=== PATIENT | female | born 1950 | race Caucasian/White ===

== ENCOUNTER → 2023-03-04 11:42 | Outpatient (CLI) | payer MEDICARE, BC, OTHER, SELFPAY ==
--- NOTE | 2023-03-04 | DI.CT.S_ITS ---
PROCEDURE: CT UE LT WO CON INDICATIONS: Primary osteoarthritis, left shoulder TECHNIQUE: Noncontrast 1-1.5 mm thick sections acquired from the acromioclavicular joint to the inferior scapula, with coronal and sagittal reformatting. COMPARISON: None. FINDINGS: Image quality: Excellent. Bones: There is likely postsurgical widening of acromioclavicular joint. Moderate osteoarthritic changes are noted in glenohumeral joint with joint space narrowing, subchondral sclerosis and small marginal osteophyte formation. No suspicious bony lesion. No acute fracture or dislocation. Visualized left ribs are intact. Mild degenerative disc disease in visualized thoracic spine is also seen. No acute vertebral body compression fracture. Postfusion changes are noted in visualized lower cervical spine. Soft tissues: There is no gross full-thickness rotator cuff tendon rupture. No abnormal soft tissue calcifications. No significant rotator cuff muscle atrophy. No significant joint effusion or subacromial subdeltoid bursal fluid is seen. No no axillary lymphadenopathy. The visualized left lung field is clear. IMPRESSION: 1. Possible postsurgical widening of acromioclavicular joint suggest clinical correlation. Moderate acromioclavicular joint osteoarthritis. No acute fracture or dislocation. No suspicious bony lesions. Prior anterior fusion of lower cervical spine. 2. No full-thickness rotator cuff tendon rupture. No significant rotator cuff muscle atrophy. No abnormal soft tissue calcifications. No significant joint effusion or subacromial subdeltoid bursal fluid. Dictated by: Santiago Edmond M.D. on 03/04/2023 at 20:12 Approved by: Santiago Edmond M.D. on 03/04/2023 at 21:13
== END ==
PROVIDERS: Referring Provider Orthopaedic Surgery; Visit Provider Orthopaedic Surgery
DX: M19.012 Primary osteoarthritis, left shoulder (principal)
CPT/HCPCS: 73200

== ENCOUNTER → 2023-04-15 08:45 | Outpatient (CLI) | payer MEDICARE, BC, OTHER, SELFPAY ==
[2023-04-15 10:08] LABS: Add Manual Diff / Slide Review NO; Basophils Absolute Auto 0 /uL (0-100); Basophils Percent Auto 0.9 % (0-2); Eosinophils Absolute Auto 100 /uL (0-450); Eosinophils Percent Auto 1.3 % (2-4); Hematocrit 37.9 % (36-46); Hemoglobin 12.8 g/dL (12.0-16.0); Lymphocytes Absolute Auto 1700 /uL (1100-4500); Mean Corpuscular HGB Conc 33.7 % (30-36); Mean Corpuscular Hemoglobin 30.2 PG (26-34); Mean Corpuscular Volume 89.5 fL (80-100); Monocytes Absolute Auto 400 /uL (0-900); Monocytes Percent Auto 7.6 % (3-14); Neutrophils Absolute Auto 3200 /uL (1500-7000); Neutrophils Percent Auto 59.2 % (50-75); Platelet Count 162 X10^3/uL (150-400); Red Blood Cell Count 4.24 X10^6/uL (4.0-5.2); Red Cell Distribution Width 13.1 % (11.6-14.8); White Blood Cell Count 5.4 X10^3/uL (4.5-11.0)
[2023-04-15 10:20] LABS: BUN Creatinine Ratio 19.2 (6-22); Blood Urea Nitrogen 14 mg/dL (7-17); Calcium 9.6 mg/dL (8.4-10.2); Carbon Dioxide 26 mmol/L (22-32); Chloride 103 mmol/L (98-107); Estimated Glomerular Filt Rate > 60 mL/min (>60); Glucose 120 mg/dL (80-110); HEMOLYSIS < 15 (0-50); Sodium 135 mmol/L (137-145)
[2023-04-15 10:35] LABS: Appearance Urine UA CLEAR; Bilirubin Urine UA NEGATIVE (NEGATIVE); Color Urine UA YELLOW; Glucose Urine UA NEGATIVE (Negative); Ketones Urine UA NEGATIVE (NEGATIVE); Leukocyte Esterase Urine UA NEGATIVE (NEGATIVE); Nitrite Urine UA NEGATIVE (Negative); Occult Blood Urine UA NEGATIVE (Negative); Protein Urine UA NEGATIVE (Negative); Specific Gravity Urine UA 1.015 (1.000-1.035); Urobilinogen Urine UA 0.2 E.U./dL (0.2)
[2023-04-15 10:41] LABS: Bacteria Urine None Seen; Culture Indicated Urine Cult Not Indicated; RBC Urine None Seen (0-5/HPF); Squamous Epithelial Cell Urine None Seen (0-5/HPF); WBC Urine None Seen (0-5/HPF)
== END ==
PROVIDERS: Referring Provider Orthopaedic Surgery; Visit Provider Orthopaedic Surgery
DX: Z01.818 Encounter for other preprocedural examination (principal); Z01.812 Encounter for preprocedural laboratory examination; N39.0 Urinary tract infection, site not specified
CPT/HCPCS: 36415; 80048; 81001; 85025; 93005

== ENCOUNTER 2023-04-29 06:19 | Inpatient (IN) | payer MEDICARE, BC, OTHER, SELFPAY ==
[2023-04-23 08:46] VITALS: BMI 25.7
[2023-04-29] VITALS (7 sets, daily range): BP systolic 104–153; BP diastolic 42–64; PULSE 52–83; RESP 16–32; TEMP 35.9–37; O2SAT 95–99; BMI 25.7; BMI 27.2
--- NOTE | 2023-04-29 06:00 | DI.RAD.S_ITS ---
PROCEDURE: XR SHOULDER LT 1V INDICATIONS: total left shoulder TECHNIQUE: Single view of the shoulder were acquired. COMPARISON: None. FINDINGS: Bones: Left shoulder reverse arthroplasty components are in adequate position. The joint is grossly congruent on a single view. No unexpected fractures. Soft tissues: Expected gas in the soft tissues. No radiodense foreign bodies. IMPRESSION: Expected appearance post left shoulder arthroplasty. Dictated by: Radha Teixeira M.D. on 04/29/2023 at 12:05 Approved by: Radha Teixeira M.D. on 04/29/2023 at 12:06
--- NOTE | 2023-04-29 07:17 | SUR.OPER ---
Beach chair with Devon shoulder positioner. Lower body on padded OR bed. Head in foam padded head cradle, secured with straps. Non-operative arm secured <90 degrees abduction. Pillow under knees. Safety belt at thigh. Cloth tape over blanket over lower legs.
[2023-04-29] MEDS: LACTATED RINGERS 1,000 ML 42 ML IV (07:18)
[2023-04-29] MEDS: ACETAMINOPHEN 325 MG TABLET 975 MG PO (07:21)
--- NOTE | 2023-04-29 07:38 | PM.PREOP ---
Pre-operative Note Interval Note History & Physical reviewed/Exam performed by Physician: Yes Changes to H&P: No
--- NOTE | 2023-04-29 07:52 | SUR.PREOP ---
Block start time [0740] . Monitoring initiated and maintained throughout procedure. Oxygen and medications given per anesthesiologist instructions. Patient remained stable throughout procedure, no adverse reactions noted. Block end time [0750].
[2023-04-29] MEDS: CEFAZOLIN 2 GM/100 ML PREMIX 100 ML IV (07:55)
[2023-04-29] MEDS: BUPIVACAINE 0.25% (PF) 10 ML, EPINEPHrine 0.3 MG INJ (08:34)
[2023-04-29] MEDS: TRANEXAMIC ACID 1,000 MG VIAL 1000 MG INJ ×2 (08:34→09:22)
[2023-04-29] MEDS: OXYCODONE IR 5 MG TABLET PO ×4 (09:51→21:18)
--- NOTE | 2023-04-29 09:54 | P.OP_ITS ---
Operative Date/Time/Diagnoses Date of procedure: 04/29/23 Time of procedure: 09:59 Pre-op diagnosis: Left shoulder cuff tear arthropathy Post-op diagnosis: same Procedure & Clinicians Procedure: Left reverse total shoulder arthroplasty Same procedure as scheduled: Yes Indications: Indications: This is a 72-year-old female who has rotator cuff arthropathy. Symptoms have been present for years, insidious onset. Patient has failed conservative therapy including injections, physical therapy, anti-inflammatories and activity modification. After extensive discussion in clinic, they wished to go forward with surgery. Risks and benefits were described including the risk of infection, bleeding, damage to internal structures including nerves. We also discussed the risk of failure of surgery and the need for revision surgery as well as the risk of anesthesia. The patient expressed understanding with these risks and wished to go forward with surgery. Surgeon: Maicol Tracy Software Engineering Analyst: Scott Gonzalez Click Yes if Unassisted: No Anesthesia Type: General Operative Notes Findings: Findings: Osteoarthritis of the glenoid and humeral head as well as a defient rotator cuff as noted on preoperative imaging and under direct visualization Closure Type: primary Specimen(s): none sent Prosthetic devices, grafts, tissues, transplants, or devices: Tornier implants Base plate: standard 25 mm, +3 mm offset Glenosphere: Standard 36 mm Stem: Perform 3 Poly: +0 concentric Estimated Blood Loss (mL): 50 Procedure in detail: Patient was seen in the preoperative holding unit. The correct left shoulder was identified and marked with my initials. Again we discussed the risks and benefits of surgery and they wished to go forward with surgery. The patient was brought back to the operating room and placed supine on the operating table. Smooth endotracheal intubation was performed by anesthesia. All prominences were padded and they were placed into the beach chair position. Intravenous an tibiotics were given. The left shoulder was then prepped with the standard sterile preparation and draping. A time-out was then performed in my initials were again identified on the correct shoulder. 1 g of IV tranexamic acid was given. A standard deltopectoral incision was made. Skin flaps were made. The cephalic vein was identified and retracted laterally. This was protected throughout the remainder of the case. Sharp dissection was made along the deltoid, subacromial and subcoracoid space to release adhesions. The conjoined tendon was identified and the axillary nerve was palpated and continuous using the tug test. It was protected throughout the remainder of the case. A brown retractor was placed underneath the deltoid muscle and a darach retractor underneath the conjoint te ndon. The anterior circumflex artery and associated veins on the lower border of the subscapularis were identified and tied off using 0-Vicryl. The biceps tendon was identified in the bicipital groove. This was released from its sheath, and taken from its origin on the glenoid and tied into the pectoralis tendon for a solid tenodesis. We then began a subscapularis peel. The subscapularis was tagged with an Ethibond suture. A 360 degree circumferential release of the subscapularis was performed with protection of the axillary nerve. The coracohumeral ligament was released at the base of the coracoid. The coracoacromial ligament was left intact. The shoulder was then dislocated. Osteophytes were removed using combination of rongeur and osteotome. The rotator cuff was noted to be insufficient. An intramedullary guide was used set at version of 30?. Using an oscillating saw a conservative humeral head cut was made. Impaction reamers were reamed up to a size 3 stem with a built-in angle 135?. A neck protector was placed. Attention was then turned to the glenoid. After retracting the humeral head posteriorly a circumferential release was performed of the capsule with pro tection of the axillary nerve. The labrum was then released starting at the biceps anchor and going around the rim a small amount of triceps was released from the inferior glenoid. A center guide pin was then placed using the guide, followed by Reamer. After adequate cartilage was removed the center drill hole was drilled and measured. The base plate was then implanted and screwed into place. The superior drill hole was drilled and filled in a nonlocking fashion, followed by the inferior and anterior holes in locking fashion, the posterior hole was also filled. A 36 standard glenosphere was then selected and screwed into place onto the base plate. Turning back to the humerus, the humeral head was delivered and trialed with a 0 concentric. The arm was taken through range of motion and this was felt to be stable. The trial was then removed and a dilute Betadine wash was then performed with 1 L of sterile saline. Before placing the final implant, drill holes were made in the bicipital groove for the subscapularis repair, and sutures were passed through the drill holes. The final stem was then impacted into the humerus. The shoulder was then reduced and again brought through range of motion and was felt to be stable. The interval was then closed using #2 Ethibond. The subscapularis was then repaired using a modified racking hitch with nice loupes. The deltopectoral interval was then closed with #2 Ethibond. The skin was closed with 2-0 PDS and Monocryl followed by Aquacel dressing. Patient was awoken from anesthesia and brought back to the postoperative recove ry unit without issue. They were placed into a sling. Assisting participation: This operation could not have been safely performed (without compromising the technical results or length of the procedure) without the assistance of a skilled surgical instruments inspector. The surgical instruments inspector was medically necessary for proper positioning, retraction and manipulation of instruments, proper exposure, graft prep, and manipulation of tissue. Complications: none Post-operative Condition: stable Disposition: PACU Plan for aftercare: Postoperative instructions: Sling to remain on for 6 weeks. No external rotation past neutral for 6 weeks. Okay for the sling to come off for shower. Okay to shower over the Aquacel dressing. If any water gets underneath the dressing, remove the dressing. First postoperative visit in 2 weeks.
[2023-04-29] MEDS: ONDANSETRON 4 MG/2 ML INJ IV (10:04)
[2023-04-29] MEDS: hydrOXYzine 50 MG/ML INJ 25 MG IM (10:12)
--- NOTE | 2023-04-29 10:48 | SUR.PHASEII ---
Went over her discharge instructions. Assumed care of pt from Randall Sanchez RN . pt has chronic pain and states her nerve block is wearing off. Pt able to move her fingers and pulse is + in her left wrist. Shoulder dressing is clean and dry. Pt states she is having pain and that she will take her home pain medications when she gets home.
--- NOTE | 2023-04-29 13:38 | PC.NURSE ---
Addendum entered by Pema Mcintosh R.N. 05/26/23 13:50: Undo: copy sent related to chart merge. Original Note: admit 1310 pt to AC direct admit after having L shoulder surgery today. Pt states pain 10/10 from left sided neck to fingers. brisk capillary refill. LUE in post op sling and pillows placed under extremity for support. ice pack to should for comfort. bruising noted to L upper arm with dressing CDI. VSS. awaiting orders from . Pt taking in sips of water without difficulty.
[2023-04-29] MEDS: CEFAZOLIN VIAL 1 GM in SODIUM CHLORIDE 0.9% 100 ML IV ×2 (16:26→23:25)
[2023-04-29] MEDS: HYDROMORPHONE 0.5 MG INJ IV (16:28)
[2023-04-29] MEDS: GABAPENTIN 300 MG CAPSULE PO ×2 (16:28→21:18)
[2023-04-29] MEDS: SENNOSIDES 8.6 MG TABLET 17.2 MG PO (21:18)
[2023-04-29] MEDS: DOCUSATE 100 MG CAPSULE PO (21:18)
[2023-04-29] MEDS: diphenhydrAMINE 25 MG TABLET 50 MG PO (21:18)
[2023-04-29] MEDS: SODIUM CHLORIDE 0.9% 250 ML 21 ML IV (23:26)
[2023-04-30 01:28] VITALS: BP 127/51; PULSE 65; RESP 15; TEMP 37.3; O2SAT 97
[2023-04-30] MEDS: diphenhydrAMINE 25 MG TABLET 50 MG PO (03:11)
[2023-04-30] MEDS: ACETAMINOPHEN 325 MG TABLET 650 MG PO ×2 (03:11→08:38)
[2023-04-30] MEDS: OXYCODONE IR 5 MG TABLET PO ×2 (03:12→08:38)
[2023-04-30 05:20] LABS: Add Manual Diff / Slide Review NO; Basophils Absolute Auto 100 /uL (0-100); Basophils Percent Auto 0.7 % (0-2); Eosinophils Absolute Auto 0 /uL (0-450); Eosinophils Percent Auto 0.3 % (2-4); Hemoglobin 11.4 g/dL (12.0-16.0); Lymphocytes Absolute Auto 2100 /uL (1100-4500); Lymphocytes Percent Auto 26.7 % (25-40); Mean Corpuscular HGB Conc 33.4 % (30-36); Mean Corpuscular Hemoglobin 29.9 PG (26-34); Mean Corpuscular Volume 89.6 fL (80-100); Monocytes Absolute Auto 900 /uL (0-900); Neutrophils Absolute Auto 4900 /uL (1500-7000); Neutrophils Percent Auto 61.3 % (50-75); Platelet Count 150 X10^3/uL (150-400); Red Cell Distribution Width 12.8 % (11.6-14.8)
[2023-04-30 06:47] VITALS: BP 116/52; PULSE 73; RESP 16; TEMP 36.8; O2SAT 95
--- NOTE | 2023-04-30 08:17 | P.DS_ITS ---
History of Present Illness History of Present Illness Date Patient Seen: 04/30/23 Time Patient Seen: 08:00 Chief complaint: S/P Shoulder Surgery Narrative: Procedure: Left reverse total shoulder arthroplasty Same procedure as scheduled: Yes Surgeon: Maicol Tracy Maintenance Inspector: Scott Gonzalez indings: Osteoarthritis of the glenoid and humeral head as well as a defient rotator cuff as noted on preoperative imaging and under direct visualization Closure Type: primary Specimen(s): none sent Prosthetic devices, grafts, tissues, transplants, or devices: Tornier implants Base plate: standard 25 mm, +3 mm offset Glenosphere: Standard 36 mm Stem: Perform 3 Poly: +0 concentric Estimated Blood Loss (mL): 50 Patient admitted to the hospital for the above-mentioned diagnosis. Patient consented for left reverse total shoulder arthroplasty. Patient back in her room recovering well as in stable condition. She has expected pain at the surgical site. Denies any fever, chills, nausea or vomiting. She will be discharged home today in stable condition. Discharge Providers Provider Date of admission: 04/29/23 12:51 Discharge Date: 04/30/23 Discharge provider: Job Felix PA-C Summary Hospital Course Discharge Diagnosis: Status post Left reverse total shoulder arthroplasty Hospital Course: Recovery 1 night. Pain control Status at Discharge Cognitive/behavioral status at discharge: oriented Functional status at discharge: independent ambulation Overall status at discharge: patient is back to baseline Time Spent with Patient Time spent: Less than 30 minutes Exam Vital Signs (past 8 hours): - 04/30/23 01:28 04/30/23 06:47 Temperature 99.2 F 98.2 F Pulse Rate 65 73 Respiratory Rate 15 16 Blood Pressure 127/51 L 116/52 L Pulse Oximetry 97 95 Oxygen Flow Rate 0 0 Oxygen Flow Rate 0 Narrative Exam Narrative: Dressing is dry and intact. Ecchymosis noted over the medial aspect aspect of the left biceps. Able to flex and extend at the left elbow against resistance. Left Diagnostic Technologist strength intact. Neurovascularly grossly intact. Objective Labs 04/30/23 05:06 Labs: Laboratory Results - last 24 hr 04/30/23 05:06 WBC 8.0 RBC 3.80 L Hgb 11.4 L Hct 34.0 L MCV 89.6 MCH 29.9 MCHC 33.4 RDW 12.8 Plt Count 150 Neut % (Auto) 61.3 Lymph % (Auto) 26.7 Cla[place]orne % (Auto) 11.0 Eos % (Auto) 0.3 L Baso % (Auto) 0.7 Neut # (Auto) 4900 Lymph # (Auto) 2100 [place]orne # (Auto) 900 Eos # (Auto) 0 Baso # (Auto) 100 PFSH Medical History (Updated 04/23/23 @ 09:27 by Peyton Yi RN) Anxiety Depression PTSD (post-traumatic stress disorder) Easy bruisability BCC (basal cell carcinoma) BCC (basal cell carcinoma), face Presence of neurostimulator (2018) Osteoarthritis History of multiple miscarriages Chronic nausea HLD (hyperlipidemia) GERD (gastroesophageal reflux disease) History of COVID-19 (04/2020) History of [facility] fever (1991) Bronchial spasms JULY (obstructive sleep apnea) Hearing impaired IBS (irritable bowel syndrome) Chronic fatigue syndrome Fibromyalgia Surgical History (Updated 04/23/23 @ 09:27 by Peyton Yi RN) History of bunionectomy of left great toe History of bilateral carpal tunnel release (1995) Hx of repair of left rotator cuff (1998) Hx of fusion of cervical spine (01/2006) Hx of tonsillectomy (1958) H/O: hysterectomy Hx of bilateral cataract extraction Social History household members: spouse Smoking Status: Former smoker alcohol intake: former Discharge Assessment & Plan Assessment and Plan Assessment: Status Post Left Shoulder Reverse Total Arthroplasty Plan of Treatment: Sling to remain on for 6 weeks. No external rotation past neutral for 6 weeks. Okay for the sling to come off for shower. First postoperative visit in 2 weeks. Post operative medications have already been prescribed and received. Discharge Plan Discharge Plan Patient Disposition: Home Provider Discharge Comment: Left arm immobilizer needs to properly applied before discharge. Discharge orders & Medications Prescriptions: Continued rizatriptan [Maxalt] 10 mg Tablet 10 mg PO Q2-4H PRN (Reason: Migraine Headache) Rx Instructions: do not exceed 3 doses per 24 hrs methocarbamol 750 mg Tablet 750 mg PO QID PRN (Reason: Muscle Spasm) trazodone 150 mg Tablet 150 mg PO BEDTIME esomeprazole magnesium [Nexium] 40 mg Capsule,Delayed Release(Dr/Ec) 40 mg PO DAILY hydroxyzine HCl 25 mg Tablet 25 mg PO BEDTIME PRN (Reason: Sleep or anxiety) albuterol sulfate 90 mcg/actuation Hfa Aerosol Inhaler 2 puff INHALATION Q4-6H PRN (Reason: Shortness Of Breath) ondansetron 4 mg Tablet,Disintegrating 4 mg PO Q6H PRN (Reason: Nausea) rosuvastatin 20 mg Tablet 20 mg PO BEDTIME buprenorphine 10 mcg/hour Patch Weekly 1 patch TRANSDERMAL QWEEK Gralise 600 mg Tablet Extended Release 24 Hr 1,800 mg PO BEDTIME Diet/Activity/Treatments Diet: Diet as Tolerated Activity: Sling to remain on for 6 weeks. No external rotation past neutral for 6 weeks. Cold/Heat Therapy: Apply ice / use ice machine as needed for pain Skin/Wound/Dressing Care Report to your healthcare provider any signs of infection, such as:: chills, fever, night sweats, unusual drainage and unusual redness Dressing: Okay to shower over the Aquacel dressing. If any water gets underneath the dressing, remove the dressing. Redress up to 5 days after surgery. Visit Report/Discharge Packet Stand Alone Forms: Patient Portal/API, Stroke Signs & Symptoms Discharge Data Attending Provider: Maicol Tracy Admit Date/Time: 04/29/23 12:51 Quality VTE Deep Vein Thrombosis/Pulmonary Embolism Present on Admission: No
--- NOTE | 2023-04-30 08:17 | CM.DANOTE ---
DCP Assessment Visit Note Reviewed EMR for pt's medical status. Met with pt and spouse at bedside to introduce self and role. Pt was placed in an OBS bed following her Left-rotator cuff arthroplasty surgery, completed yesterday, due to severe pain following the surgery. Met with pt/spouse to confirm that they have ferry reservations for the trip home, which they were actually in the midst of making when STENOCAPTIONER arrived to the room. Pt's f/u plan with Ortho is in 2-weeks, plan is to d/c this morning so they can take the 10:00am ferry home. Pt shared that her pain is now more manageable. No further DCP needs identified at this time. 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 No History Provided By Patient,Medical Record Has Patient been admitted in last 30 No days? Prior Living Arrangements House Household Members spouse Independent with ADL's Yes Is patient alert and oriented? Yes Caregiver for Another No Community Services used prior to Physical Therapy admission: Patient/Family Preference OP PT Therapy Barriers to Discharge No Discharge Plan Home Community Services Physical Therapy Transportation Arrangement Spouse is bedside and will transport pt home. They have made a ferry reservation for their return trip. Referrals Initiated None needed Whiteboard Updated in Patient Room with Yes name and ext. # of Crane [employer] Review Status In Process Please Provide Date Initial DC 04/30/22 Assessment Was Performed
[2023-04-30] MEDS: DOCUSATE 100 MG CAPSULE PO (08:37)
[2023-04-30] MEDS: GABAPENTIN 300 MG CAPSULE PO (08:38)
--- NOTE | 2023-04-30 09:10 | PT.IIE ---
Surgical History (Last Updated 04/23/23 @ 09:27 by Peyton Yi RN) H/O: hysterectomy History of bilateral carpal tunnel release (1995) History of bunionectomy of left great toe Hx of bilateral cataract extraction Hx of fusion of cervical spine (01/2006) Hx of repair of left rotator cuff (1998) Hx of tonsillectomy (1958) Medical History (Last Updated 04/23/23 @ 09:27 by Peyton Yi RN) Anxiety BCC (basal cell carcinoma) BCC (basal cell carcinoma), face Bronchial spasms Chronic fatigue syndrome Chronic nausea Depression Easy bruisability Fibromyalgia GERD (gastroesophageal reflux disease) Hearing impaired History of COVID-19 (04/2020) History of multiple miscarriages History of [place] fever (1991) HLD (hyperlipidemia) IBS (irritable bowel syndrome) JULY (obstructive sleep apnea) Osteoarthritis Presence of neurostimulator (2018) PTSD (post-traumatic stress disorder) Physical Therapy Inpatient Evaluation/Re-Eval M1 PT/OT-IP Prior Functional Status Start: 04/30/23 12:32 Freq: NEEDED Status: Active Protocol: Document 04/30/23 09:10 AB (Rec: 04/30/23 12:46 AB [id number]) Medical Review Prior Functional Status Medical History Reviewed Yes Communication able to make needs known Mobility and Gait pt is agreeable to do PT Social History Household Members spouse Living Arrangements House Number of Floors (Floors) Two Floors Number of Stairs To Enter/Railing? pt stays on main level of the house no steps to enter the house Home Environment Standard Height Toilet,Tub/ Shower Home Equipment Straight Cane,Crutches,Hand Held Shower,Grab Bars Near Toilet,Grab Bars In Shower Additional Social History Comment pt plans to sleep on a recliner M2 PT-IP Current Condition Start: 04/30/23 12:32 Freq: NEEDED Status: Active Protocol: Document 04/30/23 09:10 AB (Rec: 04/30/23 12:46 AB [id number]) Physical Therapy Current Condition Current Condition Evaluation Date 04/30/23 Treatment Diagnosis s/p L TSA reverse; difficulty in walking Onset Date 04/29/23 M3 PT-IP Subjective Start: 04/30/23 12:32 Freq: NEEDED Status: Active Protocol: Document 04/30/23 09:10 AB (Rec: 04/30/23 12:46 AB [id number]) Subjective Physical Therapy Visit Type Type Initial Evaluation Visit Start Time 09:10 Visit Stop Time 09:55 Total Visit Minutes 45 Number of TRAPEZE ARTIST Visits 0 Physical Therapy Visit Comments Patient Comments pt is agreeable to do PT Therapy Pain Assessment Pain When Pain Assessed At Rest Pain Present Pain Present Pain Reported Location Left Shoulder Intensity 8 Scale Used Numeric (0 - 10) Pain Behaviors Guarding,Holding Area Pain Management Techniques Distraction,Modification of Treatment,Re-positioning, Timing of Activity with Medications M4 PT-IP Mobility and Gait Start: 04/30/23 12:32 Freq: NEEDED Status: Active Protocol: Document 04/30/23 09:10 AB (Rec: 04/30/23 12:46 [id number]) PT-Bed Mobility Assessment Supine to Sit Supine to Sit Moderate Assistance,Head of Bed Elevated PT-Transfer Assessment Sit to and From Stand Sit to and from Stand Standby Assistance Equipment Transfer Assistive Device None,Gait Belt Orthotic/Prosthetic Devices or Brace: Yes Comments Mobility Comments pt supine in bed. spouse in room with pt. pt stated that her sling has to be adjusted. informed pt that pt will assist pt with it. obtained PLOF and home set up info. educated pt and spouse on shoulder precautions and NWB. pt completed supine to sit mod A and max cues for techniques. HOB elevated. pt plans to sleep on her recliner . pt was able to sit on EOB SBA. educated pt and spouse on sling management, dressing considering shoulder precautions. pt completed elbow/hand/wrist ROM. post-op handout provided. pt attempted pendulum but unable to complete due to increase LUE guarding. pt and spouse expressed understanding with sling management. pt completed sit to stand ambulated in room ~ 40 ft without AD SBA. pt sat back on EOB. pt and spouse without further concerns. Gait Assessment Gait Gait Assistance Required: Standby Assistance Distance (Feet) 40 Able to Maintain Weight Bearing Status Yes During Gait Assistive Devices Assistive Device None,Gait Belt Orthotic/Prosthetic Devices or Brace: Yes Gait Deviations General Gait Pattern Decreased Stride Length, Decreased Feet Clearance Factors Limiting Gait Function Factors Limiting Gait Function Decreased Activity Tolerance, Decreased Strength,Limited Range of Motion,Pain,Poor Safety Awareness PT-Balance Assessment Sitting Balance and Reactions Static Sitting Balance Ability Normal Dynamic Sitting Balance Ability Good Standing Balance and Reactions Static Standing Balance Ability Good Dynamic Standing Balance Ability Good Device Used without AD M5 PT-IP Objective Assessments Start: 04/30/23 12:32 Freq: NEEDED Status: Active Protocol: Document 04/30/23 09:10 AB (Rec: 04/30/23 12:46 AB [id number]) Orientation Orientation/Cognition Level of Alertness Alert Orientation Name Language Function Ability Hard of Hearing Safety Awareness Decreased Safety Awareness Memory Description No Deficits Noted Gross Range of Motion Lower Extremity ROM Assessment Within Functional Limits Strength Lower Extremity Strength Assessment Within Functional Limits Muscle Tone Muscle Tone WNL Yes M6 PT-IP Treatment Start: 04/30/23 12:32 Freq: NEEDED Status: Active Protocol: Document 04/30/23 09:10 AB (Rec: 04/30/23 12:46 AB [id number]) Physical Therapy Treatment Exercises Exercises Shoulder Pendulums,Elbow Flexion/Extension,Wrist ROM, Hand ROM Education Education Provided Precautions,Weight Bearing Status,Post-Op Packet,Safety M7 PT-IP Assessment and Plan Start: 04/30/23 12:32 Freq: NEEDED Status: Active Protocol: Document 04/30/23 09:10 AB (Rec: 04/30/23 12:46 AB [id number]) PT Summary Assessment and Plan Potential Rehabilitation Potential Good Status of Condition at Evaluation Evolving Summary Impairments Pain,ROM,Strength,Balance, Coordination,Sensation,Tone, Cognition,Bed Mobility, Transfers,Gait,Activity Tolerance Assessment Summary Pt is a 72 y/o F s/p L TSA reverse POD1. per nurse, pt had shoulder sx yesterday and was sent home afterwards but then with c/o increase shoulder pain and came back here in the hospital. pt requiring SBA with mobility. educated pt and spouse regarding L shoulder precautions, NWB, sling management and HEP. pt plans to go home and spouse to assist. pt has outpt PT scheduled. pt may go home when medically stable. Goals Bed Mobility Goal Independent Transfer Goal Independent Gait Goal Independent Gait Distance 300 Days to Meet Goals 5 Frequency of Treatment Frequency Of Treatment Twice a Day Treatment Plan Physical Therapy Treatment Plan Bed Mobility Training,Transfer Training,Gait Training, Therapeutic Exercise,Balance Retraining,Post Op Education, Discharge Planning,Hot or Cold Pack,Neuromuscular Re-ed, Coordination Retraining,Manual Therapy Precautions Shoulder Precautions Sling,PROM,Internal Rotation to Body,No External Rotation, No Abduction,Forward Flexion to 90 degrees,Pendulums Weight Bearing Status Weight Bearing Status Non-Weight Bearing Allowed Weight Bearing Amount (enter % UE NWB or #) (%) Recommendations To Nursing Amount of Assist Needed Standby Assistance Discharge Recommendations PT Discharge Recommendations Home with Assistance, Outpatient PT Transportation Needs at Discharge Private Vehicle
[2023-04-30 09:26] VITALS: BP 138/67; PULSE 76; RESP 18; TEMP 36.7; O2SAT 96
--- NOTE | 2023-04-30 10:25 | PC.NURSE ---
Addendum entered by Pema Mcintosh R.N. 05/26/23 13:51: Undo: copy sent related to chart merge. Original Note: Pt is dressed and ready for discharge home with Spouse. IV has been removed. Pt has been seen by PT and has had the sling adjusted properly as ordered. Went over d/c instructions with Pt and Spouse-no new prescriptions, reviewed last doses of medication. Pt has an ice machine to keep her shoulder iced and we have reviewed stroke education, s/s of infection, and follow up. Pt denied further questions and was taked out via w/c by FIRE EXTINGUISHER MECHANIC to POV with Spouse and all belongings.
--- NOTE | 2023-05-23 17:21 | PT.IIE ---
Current Diagnoses Other acute postprocedural pain (04/29/23) Primary osteoarthritis, left shoulder (04/29/23) Unspecified rotator cuff tear or rupture of left shoulder, not specified as traumatic (04/29/23) Personal history of nicotine dependence (04/29/23) Surgery Performed Operation Date: 04/29/23 07:45 Actual Procedures p Reverse Total Shoulder Arthroplasty w. biceps tenodesis(Left) - Maicol Tracy MD Surgical History (Last Updated 04/23/23 @ 09:27 by Peyton Yi RN) H/O: hysterectomy History of bilateral carpal tunnel release (1995) History of bunionectomy of left great toe Hx of bilateral cataract extraction Hx of fusion of cervical spine (01/2006) Hx of repair of left rotator cuff (1998) Hx of tonsillectomy (1958) Medical History (Last Updated 04/23/23 @ 09:27 by Peyton Yi RN) Anxiety BCC (basal cell carcinoma) BCC (basal cell carcinoma), face Bronchial spasms Chronic fatigue syndrome Chronic nausea Depression Easy bruisability Fibromyalgia GERD (gastroesophageal reflux disease) Hearing impaired History of COVID-19 (04/2020) History of multiple miscarriages History of [place] fever (1991) HLD (hyperlipidemia) IBS (irritable bowel syndrome) JULY (obstructive sleep apnea) Osteoarthritis Presence of neurostimulator (2018) PTSD (post-traumatic stress disorder) Physical Therapy Inpatient Evaluation/Re-Eval: Note recreated from a cancelled account: M1 PT/OT-IP Prior Functional Status Start: 04/30/23 12:32 Freq: NEEDED Status: Active Protocol: Document 04/30/23 09:10 AB (Rec: 04/30/23 12:46 AB [id number]) Medical Review Prior Functional Status Medical History Reviewed Yes Communication able to make needs known Mobility and Gait pt is agreeable to do PT Social History Household Members spouse Living Arrangements House Number of Floors (Floors) Two Floors Number of Stairs To Enter/Railing? pt stays on main level of the house no steps to enter the house Home Environment Standard Height Toilet,Tub/ Shower Home Equipment Straight Cane,Crutches,Hand Held Shower,Grab Bars Near Toilet,Grab Bars In Shower Additional Social History Comment pt plans to sleep on a recliner M2 PT-IP Current Condition Start: 04/30/23 12:32 Freq: NEEDED Status: Active Protocol: Document 04/30/23 09:10 AB (Rec: 04/30/23 12:46 AB [id number]) Physical Therapy Current Condition Current Condition Evaluation Date 04/30/23 Treatment Diagnosis s/p L TSA reverse; difficulty in walking Onset Date 04/29/23 M3 PT-IP Subjective Start: 04/30/23 12:32 Freq: NEEDED Status: Active Protocol: Document 04/30/23 09:10 AB (Rec: 04/30/23 12:46 AB [id number]) Subjective Physical Therapy Visit Type Type Initial Evaluation Visit Start Time 09:10 Visit Stop Time 09:55 Total Visit Minutes 45 Number of ASIAN STUDIES PROFESSOR Visits 0 Physical Therapy Visit Comments Patient Comments pt is agreeable to do PT Therapy Pain Assessment Pain When Pain Assessed At Rest Pain Present Pain Present Pain Reported Location Left Shoulder Intensity 8 Scale Used Numeric (0 - 10) Pain Behaviors Guarding,Holding Area Pain Management Techniques Distraction,Modification of Treatment,Re-positioning, Timing of Activity with Medications M4 PT-IP Mobility and Gait Start: 04/30/23 12:32 Freq: NEEDED Status: Active Protocol: Document 04/30/23 09:10 AB (Rec: 04/30/23 12:46 AB [id number]) PT-Bed Mobility Assessment Supine to Sit Supine to Sit Moderate Assistance,Head of Bed Elevated PT-Transfer Assessment Sit to and From Stand Sit to and from Stand Standby Assistance Equipment Transfer Assistive Device None,Gait Belt Orthotic/Prosthetic Devices or Brace: Yes Comments Mobility Comments pt supine in bed. spouse in room with pt. pt stated that her sling has to be adjusted. informed pt that pt will assist pt with it. obtained PLOF and home set up info. educated pt and spouse on shoulder precautions and NWB. pt completed supine to sit mod A and max cues for techniques. HOB elevated. pt plans to sleep on her recliner . pt was able to sit on EOB SBA. educated pt and spouse on sling management, dressing considering shoulder precautions. pt completed elbow/hand/wrist ROM. post-op handout provided. pt attempted pendulum but unable to complete due to increase LUE guarding. pt and spouse expressed understanding with sling management. pt completed sit to stand ambulated in room ~ 40 ft without AD SBA. pt sat back on EOB. pt and spouse without further concerns. Gait Assessment Gait Gait Assistance Required: Standby Assistance Distance (Feet) 40 Able to Maintain Weight Bearing Status Yes During Gait Assistive Devices Assistive Device None,Gait Belt Orthotic/Prosthetic Devices or Brace: Yes Gait Deviations General Gait Pattern Decreased Stride Length, Decreased Feet Clearance Factors Limiting Gait Function Factors Limiting Gait Function Decreased Activity Tolerance, Decreased Strength,Limited Range of Motion,Pain,Poor Safety Awareness PT-Balance Assessment Sitting Balance and Reactions Static Sitting Balance Ability Normal Dynamic Sitting Balance Ability Good Standing Balance and Reactions Static Standing Balance Ability Good Dynamic Standing Balance Ability Good Device Used without AD M5 PT-IP Objective Assessments Start: 04/30/23 12:32 Freq: NEEDED Status: Active Protocol: Document 04/30/23 09:10 AB (Rec: 04/30/23 12:46 AB [id number]) Orientation Orientation/Cognition Level of Alertness Alert Orientation Name Language Function Ability Hard of Hearing Safety Awareness Decreased Safety Awareness Memory Description No Deficits Noted Gross Range of Motion Lower Extremity ROM Assessment Within Functional Limits Strength Lower Extremity Strength Assessment Within Functional Limits Muscle Tone Muscle Tone WNL Yes M6 PT-IP Treatment Start: 04/30/23 12:32 Freq: NEEDED Status: Active Protocol: Document 04/30/23 09:10 AB (Rec: 04/30/23 12:46 AB [id number]) Physical Therapy Treatment Exercises Exercises Shoulder Pendulums,Elbow Flexion/Extension,Wrist ROM, Hand ROM Education Education Provided Precautions,Weight Bearing Status,Post-Op Packet,Safety M7 PT-IP Assessment and Plan Start: 04/30/23 12:32 Freq: NEEDED Status: Active Protocol: Document 04/30/23 09:10 AB (Rec: 04/30/23 12:46 AB [id number]) PT Summary Assessment and Plan Potential Rehabilitation Potential Good Status of Condition at Evaluation Evolving Summary Impairments Pain,ROM,Strength,Balance, Coordination,Sensation,Tone, Cognition,Bed Mobility, Transfers,Gait,Activity Tolerance Assessment Summary Pt is a 72 y/o F s/p L TSA reverse POD1. per nurse, pt had shoulder sx yesterday and was sent home afterwards but then with c/o increase shoulder pain and came back here in the hospital. pt requiring SBA with mobility. educated pt and spouse regarding L shoulder precautions, NWB, sling management and HEP. pt plans to go home and spouse to assist. pt has outpt PT scheduled. pt may go home when medically stable. Goals Bed Mobility Goal Independent Transfer Goal Independent Gait Goal Independent Gait Distance 300 Days to Meet Goals 5 Frequency of Treatment Frequency Of Treatment Twice a Day Treatment Plan Physical Therapy Treatment Plan Bed Mobility Training,Transfer Training,Gait Training, Therapeutic Exercise,Balance Retraining,Post Op Education, Discharge Planning,Hot or Cold Pack,Neuromuscular Re-ed, Coordination Retraining,Manual Therapy Precautions Shoulder Precautions Sling,PROM,Internal Rotation to Body,No External Rotation, No Abduction,Forward Flexion to 90 degrees,Pendulums Weight Bearing Status Weight Bearing Status Non-Weight Bearing Allowed Weight Bearing Amount (enter % UE NWB or #) (%) Recommendations To Nursing Amount of Assist Needed Standby Assistance Discharge Recommendations PT Discharge Recommendations Home with Assistance, Outpatient PT Transportation Needs at Discharge Private Vehicle Initialized on 04/30/23 12:46 - END OF NOTE
--- NOTE | 2023-05-26 13:47 | PC.NURSE ---
Late Entry: copy of RN note due to chart merge. Shanice Brown [facility] 1950 [id number] 04/29/23 13:38 - Nurse Note by Laurita Meyers RN Acct Num: [id number] : 1950 Patient Age: 72 admit 1310 pt to AC direct admit after having L shoulder surgery today. Pt states pain 10/10 from left sided neck to fingers. brisk capillary refill. LUE in post op sling and pillows placed under extremity for support. ice pack to should for comfort. bruising noted to L upper arm with dressing CDI. VSS. awaiting orders from . Pt taking in sips of water without difficulty. Initialized on 04/29/23 13:38 - END OF NOTE
--- NOTE | 2023-05-26 13:48 | PC.NURSE ---
Late entry: copy of RN note due to chart merge. Shanice Brown [facility] : 1950 [id number] 04/30/23 10:25 - [id number] : 1950 Patient Age: 72 Pt is dressed and ready for discharge home with Spouse. IV has been removed. Pt has been seen by PT and has had the sling adjusted properly as ordered. Went over d/c instructions with Pt and Spouse-no new prescriptions, reviewed last doses of medication. Pt has an ice machine to keep her shoulder iced and we have reviewed stroke education, s/s of infection, and follow up. Pt denied further questions and was taked out via w/c by ENTRY LEVEL MANAGEMENT to POV with Spouse and all belongings. Initialized on 04/30/23 10:25 - END OF NOTE
--- NOTE | 2023-05-27 13:52 | CM.DANOTE ---
04/30/23 08:17 - CM Disch. Assessment Note by SUNIL De La Paz Acct Num: [id number] : 1950 Patient Age: 72 DCP Assessment Visit Note Reviewed EMR for pt's medical status. Met with pt and spouse at bedside to introduce self and role. Pt was placed in an OBS bed following her Left-rotator cuff arthroplasty surgery, completed yesterday, due to severe pain following the surgery. Met with pt/spouse to confirm that they have ferry reservations for the trip home, which they were actually in the midst of making when CAREER DEVELOPMENT SPECIALIST arrived to the room. Pt's f/u plan with Ortho is in 2-weeks, plan is to d/c this morning so they can take the 10:00am ferry home. Pt shared that her pain is now more manageable. No further DCP needs identified at this time. Discharge Planning/Care Management CM Discharge Assessment Start: 04/30/23 08:13 Freq: Status: Active Protocol: Document 04/30/23 08:15 DPL (Rec: 04/30/23 08:17 DPL [id number]) Discharge Planning Assessment Assigned Netting Inspector SUNIL Hodges Advance Directives? No History Provided By Patient,Medical Record Has Patient been admitted in last 30 No days? Prior Living Arrangements House Household Members spouse Independent with ADL's Yes Is patient alert and oriented? Yes Caregiver for Another No Community Services used prior to Physical Therapy admission: Patient/Family Preference OP PT Therapy Barriers to Discharge No Discharge Plan Home Community Services Physical Therapy Transportation Arrangement Spouse is bedside and will transport pt home. They have made a ferry reservation for their return trip. Referrals Initiated None needed Whiteboard Updated in Patient Room with Yes name and ext. # of Netting Inspector Review Status In Process Please Provide Date Initial DC 04/30/22 Assessment Was Performed Initialized on 04/30/23 08:17 - END OF NOTE Discharge Planning/Care Management Pre-Anesthesia Assessment Start: 04/23/23 08:46 Freq: Status: Discharge Protocol: Document 04/23/23 08:46 CAB (Rec: 04/23/23 09:36 CAB [id number]) Pre-Anesthesia Assessment Preferred Name Jill Patient Information Reviewed Via Phone Assessment Assessment Completed With Patient Diagnostic Results BMP/CMP,CBC,EKG Comment Labs/EKG @ [facility] 04/15/23 Primary Care Provider Jose Hernandez Seen Specialist in Last 12 Months Yes Specialist Seen Orthopedist,Other Comment [facility] Primary Language Telugu Credit Counselor Required No Height 162.56 cm Weight 68.039 kg Body Mass Index (BMI) 25.7 Hearing Ability Hearing Impaired,Use of Hearing Aid Visual Assist Magnifying Glass Dentition Type Teeth, Natural Present Barriers to Learning None Hx Anesthesia Reactions No Hx Family Anesthesia Reaction No Hx Malignant Hyperthermia No Hx Blood Transfusions No Anesthesia Review Requested No Billboard Poster Helper No alcohol intake former Smoking Status Former smoker how long ago did patient quit smoking Quit 1982 Substance Use Type does not use Pain Present Pain Reported Musculoskeletal Symptoms Back Pain,Joint Pain,Limited Range of Motion,Muscle Spasms History of Falling (Recent or History of Yes ) Patient is completely paralyzed or No completely immobile Mental Status Oriented to own ability Is patient on oxygen? No Does patient have ASHLEY/SOB No Hx Sleep Apnea Yes: Has not moved forward with getting CPAP Currently Taking a Beta Tod No Can You Climb a Flight of Stairs Without Yes SOB Hx Chest Pain No Hx SOB Yes Hx Syncope or Dizziness No Anti-Coagulant Therapy No Has a System Manager No Cardiac Testing No Hx Pacemaker/ICD No Pacemaker Rep Required? 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 Yes Received all doses? No Marital Status Lives With spouse Current Living Arrangements House Number of Floors (Floors) Two Floors Support System Spouse Does the Patient Have Assistance After Yes Surgery Patient Discharge Plan Description Return Home Comment Pt advised same day surgery per surgeon Additional comment Lives on [facility] Feels Safe in Current Environment Yes Been Physically Hurt or Threatened By a No Person in Current Environment Do you have thoughts of harming yourself None or others? Are you currently considering suicide? No Do you have a plan to hurt yourself or No Plan others? Do You Have Any Spiritual Beliefs That No May Affect Your HC Choices? Do You Have Any Cultural Practices That No May Affect Your HC Choices? Comment Mu-Ism Who Can We Speak to About Patient's Care Family, friends Identifying Code for Release of Patient Declines to issue Information Health Care Proxy/Next of Kin Ajay () Health Care Proxy Emergency Contact Name Ajay () Emergency Contact Advance Directives? No Power of Manager Statistical No PAC Instructions Assistance for 24 hours post- op,Do not shave/clip surgical site,Durable medical equipment ,Medications to take/avoid, Nasal antibiotic,No ETOH/ petroleum product on skin DOS, NPO,Post-op transportation,Pre -surgical wash,Sensory aids, Sturdy shoes/comfortable clothes,Do not bring valuables and remove jewelry
== END 2023-04-30 10:44 | disposition home or self-care (01) | DRG 483 ==
PROVIDERS: Admitting Provider Orthopaedic Surgery; Referring Provider Orthopaedic Surgery; Visit Provider Orthopaedic Surgery
PROC: 0RRK00Z Replacement of Left Shoulder Joint with Reverse Ball and Socket Synthetic Substitute, Open Approach (ICD-10-PCS; CPT 23472; principal; 2023-04-29 07:45)
DX: M19.012 Primary osteoarthritis, left shoulder (principal); M75.102 Unspecified rotator cuff tear or rupture of left shoulder, not specified as traumatic; G89.18 Other acute postprocedural pain; Z87.891 Personal history of nicotine dependence; Z96.612 Presence of left artificial shoulder joint
CPT/HCPCS: 36415; 64450; 73020; 85025; 97162; 97530; C1776; J0171; J0330; J0690; J1100; J1170; J2405; J2704; J3010; J3410